=== PATIENT | female | born 1980 | race Caucasian/White ===

== ENCOUNTER 2016-09-23 16:19 | Emergency (ER) | payer BC ==
[~2016-09-23] VITALS: Ht 167.6 cm; Wt 67.9 kg
[~2016-09-23 16:19] MED LIST: ADDERALL XR 3030 MG PO; BACTRIM,SEPT1 TABLET PO; INTUNIV2 MG PO; LAMICTAL200 MG PO; PERCOCET 5/31 TABLET PO; SEROQUEL200 MG PO; ZANTAC150 MG PO; ZOFRAN4 MG PO
[2016-09-23 19:24] VITALS: BP 121/69
== END 2016-09-23 19:42 | disposition home or self-care (01) ==
LOC: EME 16:19
PROC: 0HQDXZZ Repair Right Lower Arm Skin, External Approach (ICD-10-PCS; principal; 2016-09-23)
PROC: 3E0234Z Introduction of Serum, Toxoid and Vaccine into Muscle, Percutaneous Approach (ICD-10-PCS; 2016-09-23)
DX: S51.811A Laceration without foreign body of right forearm, initial encounter (principal); W10.9XXA Fall (on) (from) unspecified stairs and steps, initial encounter; W45.8XXA Other foreign body or object entering through skin, initial encounter; R45.1 Restlessness and agitation; Z23 Encounter for immunization; F17.200 Nicotine dependence, unspecified, uncomplicated
CPT/HCPCS: 73090; 99281; 99284; J0690; J1885; J2060; J7050; J7120